=== PATIENT | male | born 2000 | race Caucasian/White ===

== ENCOUNTER 2023-04-07 17:00 | Emergency (ER) | payer OTHER ==
[2023-04-07 17:23] LABS: Absolute Lymphocytes (CBC) 1.4 K/uL (0.7-4.9); Hematocrit 45.1 % (39.6-49.0); Lymphocytes % 7.5 % (15.3-44.8); MCV 86.6 fL (80-100); MPV 8.5 fL (7.6-11.3)
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
--- NOTE | 2023-04-07 18:10 | RAD REPORT ---
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 No fracture, disl ocation or joint effusion.
[2023-04-07] MEDS ORDERED: ONDANSETRON 4 MG/2 ML VIAL ONE (19:12)
[2023-04-07] MEDS ORDERED: MORPHINE 4 MG/ML SYR ONE (19:12)
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
[2023-04-07 20:13] LABS: Potassium 3.6 mEq/L (3.5-5.1)
[2023-04-07 23:48] VITALS: TEMP 98
[2023-04-07 23:52] VITALS: O2SAT 100
[2023-04-07 23:53] VITALS: BP 129/71
== END 2023-04-07 22:46 | disposition short-term general hospital (02) ==
LOC: ER 17:00
DX: S02.32XA Fracture of orbital floor, left side, initial encounter for closed fracture (principal); S05.12XA Contusion of eyeball and orbital tissues, left eye, initial encounter; I10 Essential (primary) hypertension
CPT/HCPCS: 85025; 80048; 36415; 70450; 72125; 71260; 70486; 76377; 74177; 73562; 96375; 96374; 99285; Q9967; J2405